=== PATIENT | male | born 1950 | race Caucasian/White ===

== ENCOUNTER 2017-01-27 10:27 | Day surgery (SDC) | payer OTHER ==
[~2017-01-27] VITALS: Ht 175.3 cm; Wt 72.1 kg
[~2017-01-27 10:27] MED LIST: ASPIRIN81 M2 PO; FLOMAX0.4 MG PO; LISINOPRIL5 MG PO; OMEGA 3 500 SO1 EACH PO; [UNRECOGNIZED DRUG - OTHER] PO
[2017-01-27 11:19] VITALS: BP 132/80
[2017-01-27 11:36] LABS: ANION GAP 8 MEQ/L (2-14); CHLORIDE 104 MEQ/L (99-109); GFR ESTIMATE (CALCULATED) > 59 mL/min/; GLUCOSE 98 mg/dL (70-99); POTASSIUM 4.6 MEQ/L (3.7-5.4); SAMPLE HEMOLYSIS CHECK 0; SAMPLE ICTERIC CHECK 0; SAMPLE LIPEMIA CHECK 0; SODIUM 139 MEQ/L (136-147); UREA NITROGEN (BUN) 18 mg/dL (9-23)
[2017-01-27 14:55] VITALS: BP 122/70
[2017-01-27 15:55] VITALS: BP 128/56
== END 2017-01-27 16:15 | disposition home or self-care (01) ==
LOC: SDC 10:27
PROVIDERS: Urology
DX: N13.2 Hydronephrosis with renal and ureteral calculous obstruction (principal); N40.0 Benign prostatic hyperplasia without lower urinary tract symptoms; I10 Essential (primary) hypertension; I44.0 Atrioventricular block, first degree; Z79.82 Long term (current) use of aspirin; Z88.0 Allergy status to penicillin; Z82.0 Family history of epilepsy and other diseases of the nervous system; Z82.49 Family history of ischemic heart disease and other diseases of the circulatory system; Z80.9 Family history of malignant neoplasm, unspecified
CPT/HCPCS: 80048; 82365 90; 93005; C1758; C1769; C1876; J1100; J1170; J2250; J2405; J3370